=== PATIENT | female | born 1940 | race Caucasian/White ===

== ENCOUNTER 2018-12-28 10:52 | Day surgery (SDC) | payer OTHER ==
[~2018-12-28] VITALS: Ht 152.4 cm; Wt 60.1 kg
[~2018-12-28 10:52] MED LIST: ESCI5TAB PO; PANT40TA3 PO
[2018-12-28 11:43] VITALS: Ht 152.4 cm; Wt 60.1 kg
[2018-12-28 11:47] VITALS: BP 120/85; PULSE 85; RESP 16
[2018-12-28] MEDS ORDERED: LIDOCAINE 1% (MPF) 5 ML VIAL ONE (12:48)
[2018-12-28 13:39] VITALS: BP 111/69; PULSE 77; RESP 18
== END 2018-12-28 16:39 | disposition home or self-care (01) ==
LOC: SDS 10:52
PROVIDERS: ATTEND Internal Medicine Pulmonary Disease
DX: J90 Pleural effusion, not elsewhere classified (principal)
CPT/HCPCS: 32555; 71045; Z7610; 88104; 88305; 88341; 88342; 88360; 88377